=== PATIENT | male | born 1985 | race Caucasian/White ===

== ENCOUNTER 2021-10-20 13:00 | Emergency (ER) | payer SELFPAY ==
[~2021-10-20] VITALS: Ht 175.3 cm; Wt 72.7 kg
[2021-10-20 13:15] VITALS: BP 139/87; TEMP 97.6
[2021-10-20 14:23] VITALS: PULSE 76
== END 2021-10-20 14:26 | disposition home or self-care (01) ==
LOC: COL.ER 13:00
DX: M79.672 Pain in left foot (principal); R60.0 Localized edema; Z28.310 Unvaccinated for COVID-19